=== PATIENT | female | born 1985 | race Caucasian/White ===

== ENCOUNTER 2019-08-02 20:21 | Emergency (ER) | payer SELFPAY ==
[2019-08-02 20:38] VITALS: BP 108/83
== END 2019-08-02 23:59 | disposition left against medical advice (07) ==
LOC: ER 20:21
DX: Z53.21 Procedure and treatment not carried out due to patient leaving prior to being seen by health care provider (principal)

== ENCOUNTER 2020-03-17 02:15 | Emergency (ER) | payer SELFPAY ==
[2020-03-17 02:19] VITALS: BP 115/60
== END 2020-03-17 04:45 | disposition left against medical advice (07) ==
LOC: ER 02:15
DX: Z53.21 Procedure and treatment not carried out due to patient leaving prior to being seen by health care provider (principal)